=== PATIENT | female | born 1940 | race Caucasian/White ===

== ENCOUNTER 2016-10-07 05:10 | Inpatient (IN) | payer MEDICARE, OTHER ==
--- NOTE | ~2016-10-07 | HP ---
History And Physical [facility] [address] [place]. [address] NAME: MOISES FLETCHER : 42 STATUS : ADM Faviola PAT#: [id number] AGE: 75 ADM/REG DATE : 10/07/16 MR#: [id number] REPORT SERV DATE: 10/07/16 DICTATED BY: FILOMENA TIERNEY DATE: 10/07/16 REPORT STATUS : Draft TRANSCRIBED BY: MODDiego DATE: 10/07/16 DATE OF ADMISSION: 10/07/2016 INDICATION FOR HOSPITALIZATION: Right lower extremity pain secondary to sacral fracture and right pubic ramus fracture. HISTORY OF PRESENT ILLNESS: Ms. Fletcher is a 75-year-old female, who currently is on chronic dialysis Wednesday, Wednesday, Wednesday at [facility] dialyzing by left upper extremity AV fistula. She was preparing for dialysis early today and apparently was using her walker, but turned "blacked out" with subsequent fall. She noted immediate pain in her right lower extremity. Upon emergency room evaluation at [facility], she was determined to have an inferior right pubic ramus fracture and possible sacral fracture. She has had remote fracture to her right hip requiring open reduction and internal fixation with trochanteric nail and a right shoulder fracture as well. She has noted some constipation. Denies any shortness of breath. Does note that when turning her head, she occasionally has problems with pain, but no blackouts. PAST MEDICAL HISTORY: 1. End-stage renal disease, dialyzing Wednesday, Wednesday, Wednesday at [facility] by left upper extremity AV fistula. 2. Anemia. 3. History of hemorrhagic CVAs. 4. Chronic atrial fibrillation, off anticoagulant therapy due to recurrent falls and hemorrhagic stroke. 5. Aortic stenosis, status post TAVR with subsequent prosthetic valve and endocarditis requiring prolonged antibiotic treatment. 6. Type 2 diabetes mellitus. 7. Hypertension. 8. Chronic obstructive pulmonary disease. 9. Hyperlipidemia. 10.Remote right humerus and right hip fracture. 11.Chronic thrombocytopenia. 12.History of pulmonary thromboembolus. 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 14.Remote failed renal transplant. 15.Restless legs syndrome. 16.Osteoarthritis. PAST SURGICAL HISTORY: Includes cholecystectomy, hysterectomy, cataract surgery, right ankle fracture, right hip fracture with trochanteric nail, TAVR, and right lung biopsy. FAMILY HISTORY: Positive for hypertension and diabetes. No end-stage renal disease. SOCIAL HISTORY: The patient is , previously worked as control equipment electrician, excessive exposure to secondhand smoke. She actually did smoke but quit some years ago, smoking for a period of 20 to 30 years. No alcohol use or illicit drug use. History And Physical [address] [address] NAME: MOISES FLETCHER : 42 STATUS : ADM Faviola PAT#: [id number] AGE: 75 ADM/REG DATE : 10/07/16 MR#: [id number] REPORT SERV DATE: 10/07/16 DICTATED BY: FILOMENA TIERNEY DATE: 10/07/16 REPORT STATUS : Draft TRANSCRIBED BY: MARY DATE: 10/07/16 ALLERGIES: MEPERIDINE, ADHESIVE TAPE, HYDRALAZINE, MORPHINE, AND GABAPENTIN. HOME MEDICATIONS: Vitamin B12, Colace, Cymbalta, Advair Diskus 250/50, folic acid, Lasix, hydrocodone, Claritin, albuterol MDI inhaler, Proventil nebulizer, Xanax, amiodarone, Norvasc, atenolol, Biaxin, Namenda, midodrine, probiotic capsule, Nasonex nasal spray, Prilosec, Phenergan, rifabutin, Spiriva HandiHaler, Zanaflex, Demadex, and trazodone. REVIEW OF SYSTEMS: HEENT: No change in visual acuity. No epistaxis. No otic infection. No pharyngitis. PULMONARY: Chronically short of breath. Intermittent cough. No hemoptysis. CARDIAC: Denies chest pain. No lower extremity edema. GASTROINTESTINAL: Presently constipated. No nausea or vomiting. Appetite is poor. GENITOURINARY: Voids minimally. No gross hematuria. MUSCULOSKELETAL: Pain in her right lower extremity. INTEGUMENT: No rash. No itching. NEUROLOGIC: Denies lateralizing weakness, but does have generalized weakness. No history of seizure disorder. Remainder of 12-point review of systems is negative. PHYSICAL EXAMINATION: GENERAL: Frail chronically ill female. VITAL SIGNS: Blood pressure 99/53, temperature 98, and respiratory rate 19. HEENT: Eyes, no scleral icterus. Pupils are equal and reactive to light. Extraocular movement intact. Nares patent. No discharge. Throat, no injection. Mucous membranes moist. NECK: No thyromegaly or masses. Questionable bilateral carotid bruits. CHEST/LUNGS: Late crackles posteriorly. No wheezing. No dullness. CARDIAC: Irregular rhythm, 1/6 systolic ejection murmur. No gallop or rub. ABDOMEN: Supple. Normoactive bowel sounds. No tenderness, masses, or organomegaly. BREAST: Not performed. PELVIC: Not performed. RECTAL: Not performed. EXTREMITIES: No lower extremity edema. Pain with any movement of right lower extremity. No calf tenderness. DERMIS: No rash. No itching. NEUROLOGIC: Cranial nerves intact. She is able to move all extremities. Pain with right lower extremity movement and some pain in right shoulder. MUSCULOSKELETAL: No deformity. IMPRESSION: 1. Right inferior pubic ramus fracture with probable sacral fracture following a fall. 2. End-stage renal disease, dialyzing Wednesday, Wednesday, and Wednesday at [facility] by left upper extremity AV fistula. 3. Anemia. 4. History of hemorrhagic stroke. History And Physical [address] [address] NAME: MOISES FLETCHER : 42 STATUS : ADM Faviola PAT#: [id number] AGE: 75 ADM/REG DATE : 10/07/16 MR#: [id number] REPORT SERV DATE: 10/07/16 DICTATED BY: FILOMENA TIERNEY DATE: 10/07/16 REPORT STATUS : Draft TRANSCRIBED BY: MARY DATE: 10/07/16 5. Status post TAVR with prostatic valve endocarditis, treated prolonged with gentamicin, vancomycin, and rifampin. 6. Type 2 diabetes mellitus. 7. Hypertension. 8. Chronic atrial fibrillation. 9. Chronic obstructive pulmonary disease. 10.Dyslipidemia. 11.Chronic thrombocytopenia. 12.Pulmonary thromboembolus. PLAN: 1. Lab. 2. Ortho evaluation. 3. Pain control. 4. Hemodialysis. CG/MARY Filomena Tierney M.D. / [id number] CC: Filomena Tierney M.D.
--- NOTE | ~2016-10-07 | CN ---
Consultation Report [facility] [address] [place]. [address] NAME: MOISES FLETCHER : 42 STATUS : ADM Faviola PAT#: [id number] AGE: 75 ADM/REG DATE : 10/07/16 MR#: [id number] REPORT SERV DATE: 10/08/16 DICTATED BY: HUY BRYANT DATE: 10/08/16 REPORT STATUS : Draft TRANSCRIBED BY: MODL DATE: 10/08/16 CONSULTATION DATE OF CONSULTATION: 10/08/2016 CHIEF COMPLAINT: Right hip pain. HISTORY OF PRESENT ILLNESS: Ms Fletcher is a 75-year-old female, who fell at home landing on her right side. She had immediate onset of severe right hip pain, and has been unable to ambulate since the time of her fall. She presented to the [facility] Emergency Room, where x-rays and CT scan showed a nondisplaced acute to the right superior pubic ramus fracture, and a likely right sacral ala fracture. She has old healed superior and inferior pubic ramus fractures as well. She is status post open reduction and internal fixation of her right subtrochanteric femur fracture which has healed with no acute femur fracture. On questioning, she complains of only right hip pain. She as noted above, has been unable to ambulate since the time of the fall. She denies any mental status changes or loss of consciousness at the time of the fall. PHYSICAL EXAMINATION: GENERAL: She is awake, alert, and oriented x3. She has no significant pain with AP or lateral compression of her pelvis. She is tender over her superior pubic ramus. She is unable to tolerate active right hip range of motion due to the pain. She has moderately increased pain with attempted passive right hip range of motion. There is no trochanteric tenderness. She has no tenderness in the mid thigh distally. She has minimal pain with axial loading of her right lower extremity. Palpable pedal pulses and normal sciatic nerve function on the right. DIAGNOSTIC STUDIES: X-rays and CT of her pelvis and right hip are as noted above. IMPRESSION: Right superior and inferior pubic ramus fracture with likely a nondisplaced sacral ala fracture. Ms Fletcher to be mobilized weightbearing to her tolerance of pain using a walker, as I feel that a risk of displacement of her sacral fractures is extremely minimal. She will need a PT and OT, and also likely a assisted facility placement for a rehab. Follow up with me in one month. Thanks for the consultation. TONA/MARY Consultation Report [facility] [id number] [place]. [address] NAME: MOISES FLETCHER : 42 STATUS : ADM Faviola PAT#: [id number] AGE: 75 ADM/REG DATE : 10/07/16 MR#: [id number] REPORT SERV DATE: 10/08/16 DICTATED BY: HUY BRYANT DATE: 10/08/16 REPORT STATUS : Draft TRANSCRIBED BY: MARY DATE: 10/08/16 Huy Bryant M.D. / [id number] CC: Geetha Quinn
[2016-10-07 05:02] LABS: BASOPHILS 0.2 %; BASOPHILS ABSOLUTE 0.01 10/3/uL (0.0-0.16); EOSINOPHILS ABSOLUTE 0.45 10/3/uL (0.0-0.53); ER CBC TAT 0 Hrs 09 Mins; IMMATURE GRANULOCYTES 0.5 %; IMMATURE GRANULOCYTES ABSOLUTE 0.03 10/3/uL (0.0-0.11); LYMPHOCYTES 13.7 %; LYMPHOCYTES ABSOLUTE 0.88 10/3/uL (0.67-4.30); MEAN CORPUS HGB CONC 31.8 g/dL (32.0-36.0); MEAN CORPUSCULAR HEMOGLOB 30.5 pg (26.0-34.0); MEAN CORPUSCULAR VOLUME 95.9 fL (80-100); MEAN PLATELET VOLUME 9.5 fL (9.2-13.0); MONOCYTES 6.2 %; NEUTROPHILS 72.4 %; NEUTROPHILS ABSOLUTE 4.67 10/3/uL (2.02-8.40); PLATELET COUNT 61 10/3/uL (150-400); RBC DISTRIBUTION WIDTH 15.8 % (12.0-16.0); RED CELL COUNT 3.41 10/6/uL (4.0-5.6); WHITE BLOOD CELLS 6.4 10/3/uL (4.5-10.5)
[2016-10-07 05:03] LABS: HEMATOCRIT 32.7 % (36.0-48.0); HEMOGLOBIN 10.4 g/dL (12.0-16.0); MANUAL DIFF NO %
[2016-10-07 05:06] LABS: INTERNATIONAL NORMAL RATI 1.2 UNITS (-); PARTIAL THROMBO TIME 39.6 SEC (22.5-37.2)
[2016-10-07 05:07] LABS: PROTIME (NOT ORD) 14.7 SEC (12.0-14.5)
[~2016-10-07 05:10] MED LIST: ACET500CAP PO; ADVAIR DISKUS INH; ADVAIR250 INH; ALBUTEROL5 INH; APRES25 PO; ASAB PO; ATROVENTUD INH; C1; C1 PO; C2 PO; C5 PO; CALTRA600D PO; CAT1 PO; CENTRUM PO; CHOLECALCIFEROL PO; CHOLESTEROL RX PO; CLARIT10 PO; CORDARONE PO; COREG6 PO; COUMADIN; COUMADIN3 MG PO; COUMADIN4 MG PO; CRESTOR10 PO; CYCLOSPORINE100 MG OR; CYMBALTA30 PO; DSS PO; DULERA 200 MCG/13 GM INH; DUONEB INH; DURA25 TOP; FESO4 PO; FLONASE NAS; IRON325 MG PO; KAYEXUD PO; L40 PO; LEVAQUIN750 MG PO; LIPITOR20 PO; LOP25 PO; LOP50 PO; MAGOX4 PO; MIRALAXPKT PO; MUCINEX600 MG PO; MULTIPLE VIT PO; MULTIVIT/MIN PO; MULTIVITAMI1 PO; MVI PO; NAMENDA5 PO; NASONEX NAS; NATURA2 OPH; NITROSTAT0.4 MG SL; NORCO1 TA1 PO; NORCO1 TAB PO; NORV10 PO; NORV25 PO; NORV5 PO; NOVOLOG SC; NYSTOP100000 MG TOP; OS500+D PO; PHOSLO PO; PLAVIX PO; PRAVACHOL80 MG PO; PREV30 PO; PRILO PO; PRILOSEC40 MG PO; PROAIR HFA INH; PROAIR HFA PO; PROAMAT5 PO; PROMETHAZI6.25 MG/5 PO; PROTONIX PO; PROVENTSOL INH; REFRESH OPH; REFRESH1 % OPH; SORB PO; SPIRIVA INH; T PO; TEARS PURE OPH; TRAZODONE150 MG PO; TUMSROLL PO; ULTRAM50 PO; VANCO1P; VENTOLIN HFA INH; VITAMIN D OTC PO; VITAMIN D PO; VITAMIN D400 UNI1 PO; X5 PO; XANAX1 MG PO; XYZAL5 MG PO; ZANAFLEX 4 MG TA4 MG PO; ZOFRAN4 PO; [UNRECOGNIZED DRUG - CODE] PO; [UNRECOGNIZED DRUG - OTHER] TOP; [UNRECOGNIZED DRUG - OTHER] V
[2016-10-07 05:16] LABS: BUN (BLOOD UREA NITROGEN) 45 MG/DL (6-23); CALCIUM, SERUM 8.2 MG/DL (8.5-10.4); CHEST PAIN PROFILE TAT 0 Hrs 23 Mins; CHLORIDE, SERUM 99 MMOL/L (96-112); CO2 (CARBON DIOXIDE) 30 MMOL/L (24-34); CREATININE 4.29 MG/DL (0.55-1.02); GFR AFRICAN AMERICAN 11 ML/MIN (>=60); GFR NON AFRICAN AMERICAN 10 ML/MIN (>=60); GLUCOSE, SERUM 105 MG/DL (60-99); POTASSIUM, SERUM 5.4 MMOL/L (3.5-5.3); SODIUM, SERUM 135 MMOL/L (135-148); TROPONIN I 0.03 NG/ML (<0.05)
[2016-10-07 05:28] LABS: PLATELET ESTIMATE DEC (ADEQUATE); RBC MORPHOLOGY NORM (NORMAL)
[2016-10-07 07:05] LABS: ASCORBIC ACID (UR NOT ORDER) NEG (NEG); BILIRUBIN, URINE NEGATIVE (NEG); ER URINALYSIS TAT 0 Hrs 12 Mins; KETONE, URINE NEGATIVE (NEG); LEUKOCYTE ESTERASE(NOT OR LARGE (NEG); NITRITE (URINE) NEG (NEG); WBC (NOT ORDERED) (RFLEX) 126 (0-5)
[2016-10-07] MEDS ORDERED: [UNRECOGNIZED DRUG - CODE] PO (11:01)
[2016-10-07] MEDS ORDERED: DEMA100 PO (11:01)
[2016-10-07] MEDS ORDERED: NORCO1 TAB PO (11:02)
[2016-10-07] MEDS ORDERED: XANAX1 MG PO (11:02)
[2016-10-07] MEDS ORDERED: ATEN25 PO (11:02)
[2016-10-07] MEDS ORDERED: NASONEX NAS (11:02)
[2016-10-07] MEDS ORDERED: NORV10 PO (11:02)
[2016-10-07] MEDS ORDERED: PROAMAT5 PO (11:03)
[2016-10-07] MEDS ORDERED: NAMENDA5 PO (11:03)
[2016-10-07] MEDS ORDERED: BIAXIN5 PO (11:04)
[2016-10-07] MEDS ORDERED: ZANAFLEX2 MG PO (11:04)
[2016-10-07] MEDS ORDERED: CORDARONE PO (11:04)
[2016-10-07] MEDS ORDERED: ADVAIR250 INH (11:05)
[2016-10-07] MEDS ORDERED: PROBIOTIC PO (11:05)
[2016-10-07] MEDS ORDERED: L40 PO (11:05)
[2016-10-07] MEDS ORDERED: SPIRIVA INH (11:05)
[2016-10-07] MEDS ORDERED: D.O.S.100 MG PO (11:06)
[2016-10-07] MEDS ORDERED: CYMBALTA30 PO (11:06)
[2016-10-07] MEDS ORDERED: ALBUTEROL5 INH (11:07)
[2016-10-07] MEDS ORDERED: TRAZODONE150 MG PO (11:07)
[2016-10-07] MEDS ORDERED: PROMETHAZI6.25 MG/5 PO (11:07)
[2016-10-07] MEDS ORDERED: PROAIR HFA PO (11:07)
[2016-10-07] MEDS ORDERED: CLARIT10 PO (11:08)
[2016-10-07] MEDS ORDERED: FOLIC ACID400 MC1 PO (11:08)
[2016-10-07] MEDS ORDERED: B121000P IM (11:08)
[2016-10-07] MEDS ORDERED: PRILO PO (11:14)
[2016-10-08 05:20] LABS: BASOPHILS 0.4 %; BASOPHILS ABSOLUTE 0.02 10/3/uL (0.0-0.16); EOSINOPHILS 7.6 %; EOSINOPHILS ABSOLUTE 0.41 10/3/uL (0.0-0.53); HEMATOCRIT 31.5 % (36.0-48.0); LYMPHOCYTES 16.4 %; LYMPHOCYTES ABSOLUTE 0.88 10/3/uL (0.67-4.30); MEAN CORPUS HGB CONC 31.7 g/dL (32.0-36.0); MEAN CORPUSCULAR HEMOGLOB 30.6 pg (26.0-34.0); MEAN CORPUSCULAR VOLUME 96.3 fL (80-100); MEAN PLATELET VOLUME 10.8 fL (9.2-13.0); MONOCYTES 10.2 %; MONOCYTES ABSOLUTE 0.55 10/3/uL (0.21-1.20); NEUTROPHILS 65.4 %; NEUTROPHILS ABSOLUTE 3.51 10/3/uL (2.02-8.40); PLATELET COUNT 68 10/3/uL (150-400); RED CELL COUNT 3.27 10/6/uL (4.0-5.6); WHITE BLOOD CELLS 5.4 10/3/uL (4.5-10.5)
[2016-10-08 05:21] LABS: MANUAL DIFF NO %
[2016-10-08 05:29] LABS: CHLORIDE, SERUM 100 MMOL/L (96-112); CO2 (CARBON DIOXIDE) 28 MMOL/L (24-34); GLUCOSE, SERUM 97 MG/DL (60-99); SODIUM, SERUM 138 MMOL/L (135-148)
[2016-10-08 05:30] LABS: BUN (BLOOD UREA NITROGEN) 19 MG/DL (6-23); CREATININE 2.49 MG/DL (0.55-1.02); GFR AFRICAN AMERICAN 21 ML/MIN (>=60); GFR NON AFRICAN AMERICAN 18 ML/MIN (>=60); POTASSIUM, SERUM 4.2 MMOL/L (3.5-5.3)
[2016-10-08 06:18] LABS: PLATELET ESTIMATE DEC (ADEQUATE)
[2016-10-08 06:23] LABS: RBC MORPHOLOGY NORM (NORMAL)
== END 2016-10-08 18:45 | disposition home health service (06) | DRG 551 ==
LOC: ER 05:10 → CDU1 11:10 → CDU2 11:39
PROVIDERS: Internal Medicine Nephrology; Specialist
PROC: 5A1D00Z (ICD-10-PCS; principal; 2016-10-07)
DX: S32.19XA Other fracture of sacrum, initial encounter for closed fracture (principal); N18.6 End stage renal disease; I12.0 Hypertensive chronic kidney disease with stage 5 chronic kidney disease or end stage renal disease; E11.22 Type 2 diabetes mellitus with diabetic chronic kidney disease; D69.6 Thrombocytopenia, unspecified; S32.591A Other specified fracture of right pubis, initial encounter for closed fracture; W19.XXXA Unspecified fall, initial encounter; J44.9 Chronic obstructive pulmonary disease, unspecified; E78.5 Hyperlipidemia, unspecified; M19.90 Unspecified osteoarthritis, unspecified site; I48.2 Chronic atrial fibrillation; G25.81 Restless legs syndrome; D64.9 Anemia, unspecified; Z99.2 Dependence on renal dialysis; Z86.73 Personal history of transient ischemic attack (TIA), and cerebral infarction without residual deficits; Z86.718 Personal history of other venous thrombosis and embolism; Z95.2 Presence of prosthetic heart valve; Z90.49 Acquired absence of other specified parts of digestive tract; Z83.3 Family history of diabetes mellitus; Z77.22 Contact with and (suspected) exposure to environmental tobacco smoke (acute) (chronic); Z88.8 Allergy status to other drugs, medicaments and biological substances; Z88.5 Allergy status to narcotic agent; Z91.048 Other nonmedicinal substance allergy status; Z87.891 Personal history of nicotine dependence
CPT/HCPCS: 70450; 71010; 73030-RT; 73501-RT; 73700-LT; 80048; 80069; 81001; 82962; 83735; 83880; 84484; 85025; 85610; 85730; 87086; 93005; 94640; 96374; 96376; 97161-GP; 97165-GO; 99285; A9270-GY; G0257; G0378; G8978-CK-GP; G8979-CI-GP; G8987-CJ-GO; G8988-CI-GO; P9047